=== PATIENT | female | born 1975 | race African-American/Black ===

== ENCOUNTER → 2016-12-08 | Outpatient (REF) | payer BC, OTHER ==
[~2016-12-08] MED LIST: ACET50TA PO; IBUP200C10 PO; IBUP80TA PO; PERC5TAB12 PO
[2016-12-08 20:46] LABS: FREE T4 1.18 NG/DL (0.76-1.46); HCG, SERUM QUANTITATIVE < 1.0 MIU/ML
[2016-12-08 21:30] LABS: BASO % 1.1 % (0.0-1.0); EOS % 0.5 % (0.0-3.0); LARGE UNSTAINED CELL # 0.1 K/mm3 (0.0-0.4); LARGE UNSTAINED CELL % 2.2 % (0.0-4.0); LYMPH # 1.5 K/mm3 (1.5-4.5); LYMPH % 28.1 % (24.0-44.0); MEAN CORPUSCULAR HGB CONC 26.2 g/dl (32.0-36.5); MEAN CORPUSCULAR VOLUME 64.9 fl (80.0-96.0); MONO # 0.4 K/mm3 (0.0-0.8); MONO % 8.4 % (0.0-5.0); NEUTROPHILS # 2.9 K/mm3 (1.8-7.7); NEUTROPHILS % 59.8 % (36.0-66.0); PLATELET COUNT, AUTOMATED 381 k/mm3 (150-450); RED CELL DISTRIBUTION WIDTH 17.9 % (11.5-14.5); WHITE BLOOD COUNT 4.9 K/mm3 (4.0-10.0)
[2016-12-08 21:32] LABS: ADD MORPHOLOGY? YES
[2016-12-08 22:30] LABS: HYPOCHROMASIA 3+; MICROCYTOSIS 4+
[2016-12-08 22:31] LABS: ANISOCYTOSIS 3+; POLYCHROMASIA 1+; TARGET CELLS 1+
== END ==
LOC: M LAB REF 18:40
PROVIDERS: ATTEND Advanced Practice Midwife
DX: N92.0 Excessive and frequent menstruation with regular cycle (principal)

== ENCOUNTER → 2016-12-16 | Outpatient (REF) | payer BC, OTHER ==
[2016-12-16 19:31] LABS: PERCENT SATURATION 2.9 % (13.2-37.4)
[2016-12-16 19:45] LABS: FOLATE 12.6 NG/ML (>5.4)
[2016-12-20 00:08] LABS: HEMOGLOBIN A 98.7 % (94.0-98.0)
== END ==
LOC: M LAB REF 17:02
PROVIDERS: ATTEND Advanced Practice Midwife
DX: D64.9 Anemia, unspecified (principal)

== ENCOUNTER 2017-02-13 08:39 | Day surgery (SDC) | payer OTHER ==
[~2017-02-13] VITALS: Ht 162.6 cm; Wt 81.6 kg
[2017-02-13] VITALS (8 sets, daily range): BP systolic 120–140; BP diastolic 75–87
[~2017-02-13 08:39] MED LIST changes: -IBUP200C10 PO; -PERC5TAB12 PO
[2017-02-13] MEDS ORDERED: ceFAZolin 2 GM/D5W 50 ML IV BAG (J0690) As Ordered ONE (08:53)
[2017-02-13] MEDS ORDERED: LR 1,000 ML IV ONE (09:00)
[2017-02-13] MEDS ORDERED: PERC5TAB12 PO (09:35)
[2017-02-13 09:39] LABS: MEAN CORPUSCULAR HEMOGLOBIN 17.2 pg (27.0-33.0); MEAN CORPUSCULAR VOLUME 63.3 fl (80.0-96.0); WHITE BLOOD COUNT 5.5 K/mm3 (4.0-10.0)
[2017-02-13 09:40] LABS: MEAN CORPUSCULAR HGB CONC 27.1 g/dl (32.0-36.5)
[2017-02-13 09:48] LABS: CONTROL LINE HCG INT CTR LINE PRESENT
[2017-02-13 09:52] LABS: ANION GAP 8 MEQ/L (8-16); BLOOD UREA NITROGEN 17 MG/DL (7-18); CALCIUM LEVEL 8.3 MG/DL (8.5-10.1); CARBON DIOXIDE LEVEL 24 MEQ/L (21-32); CHLORIDE LEVEL 109 MEQ/L (98-107); CREATININE FOR GFR 0.64 MG/DL (0.55-1.02); GLOMERULAR FILTRATION RATE > 60.0 (>60); GLUCOSE, FASTING 88 MG/DL (70-105); SODIUM LEVEL 141 MEQ/L (136-145)
[2017-02-13] MEDS ORDERED: ACETAMINOPHEN 650 MG SUPP As Ordered ONE (09:57)
[2017-02-13] MEDS ORDERED: VASOPRESSIN INJ 20 UNITS/ML VIAL As Ordered ONE (09:57)
[2017-02-13] MEDS ORDERED: NEOSTIGMINE 10 MG/10 ML VIAL (J2710) As Ordered ONE (10:47)
[2017-02-13] MEDS ORDERED: PROPOFOL 200 MG/20 ML VIAL As Ordered ONE (10:47)
[2017-02-13] MEDS ORDERED: GLYCOPYRROLATE INJ 0.2 MG/ML 2 ML VIAL As Ordered ONE (10:47)
[2017-02-13] MEDS ORDERED: MIDAZOLAM INJ 2 MG/2 ML VIAL (J2250) As Ordered ONE (10:47)
[2017-02-13] MEDS ORDERED: LIDOCAINE 2% INJ 100 MG/5 ML SDV (FOR ANES.) As Ordered ONE (10:47)
[2017-02-13] MEDS ORDERED: fentaNYL 100 MCG/2 ML INJECTION (J3010) As Ordered ONE ×2 (10:47→11:58)
[2017-02-13] MEDS ORDERED: ONDANSETRON 4MG/2ML VIAL (J2405) As Ordered ONE (10:48)
[2017-02-13] MEDS ORDERED: dexameTHASONE 4 MG/ML 1ML VIAL (J1100) As Ordered ONE (10:48)
[2017-02-13] MEDS ORDERED: KETOROLAC 60 MG/2 ML VIAL (J1885) As Ordered ONE (10:48)
[2017-02-13 11:41] LABS: MEAN CORPUSCULAR HEMOGLOBIN 16.6 pg (27.0-33.0); MEAN CORPUSCULAR HGB CONC 26.2 g/dl (32.0-36.5); MEAN CORPUSCULAR VOLUME 63.5 fl (80.0-96.0); RED CELL DISTRIBUTION WIDTH 17.2 % (11.5-14.5); WHITE BLOOD COUNT 3.7 K/mm3 (4.0-10.0)
[2017-02-13] MEDS ORDERED: IBUPROFEN 400 MG TAB As Ordered ONE (11:58)
[2017-02-13] MEDS: fentaNYL 100 MCG/2 ML INJECTION (J3010) IV PRN ×4 (12:00→12:20)
[2017-02-13] MEDS ORDERED: ONDANSETRON 4MG/2ML VIAL (J2405) IV PRN (12:15)
[2017-02-13] MEDS ORDERED: LR 1,000 ML IV SCH (12:15)
[2017-02-13] MEDS: IBUPROFEN 800 MG TAB PO SCH ×3 (12:15→23:22)
--- NOTE | 2017-02-13 12:22 | RO ---
DATE OF PROCEDURE: 02/13/2017 PREOPERATIVE DIAGNOSES: 1. Excessive uterine bleeding. 2. Symptomatic anemia. 3. Fibroid uterus. POSTOPERATIVE DIAGNOSES: 1. Excessive uterine bleeding. 2. Symptomatic anemia. 3. Fibroid uterus. PROCEDURE: 1. Total vaginal hysterectomy. 2. Bilateral salpingectomies SURGEON: Da Beach DO CORRESPONDENCE RENEW CLERK: ANESTHESIA: General. Carole is a 41-year-old female with extensive history of abnormal uterine bleeding, symptomatic anemia and fibroid uterus. After counseling in the office a decision was made for total vaginal hysterectomy, possible bilateral salpingectomies COMPLICATIONS: None. ESTIMATED BLOOD LOSS: 500 mL. FINDING: An enlarged uterus with normal appearing ovaries. SPECIMEN SENT TO THE LAB: Uterus, cervix and bilateral fallopian tube. DESCRIPTION OF PROCEDURE: After obtaining informed consent, patient was taken to the operating room where general anesthetic was found to be adequate. She was then draped and prepped in usual sterile fashion in the dorsal lithotomy position. At this point, a Ch catheter was placed in the bladder for drainage. We then placed a weighted speculum in the posterior fornix of the vagina. Using a Jaquez retractor, the anterior and posterior lips of the cervix were then grasped with two [facility] clamp. The cervix were then infiltrated with dilute Pitressin in a circumferential manner. Using the Bovie, a circumferential incision was made over the cervix. The anterior and posterior cul-de-sac were then entered. A Oma clamp was placed at the level of the uterosacral ligament. This was clamped, cut and suture ligated using #0 Vicryl sutures. These two sutures were left in place for closure of the vaginal cuff. We then did serial bites to include the uterine artery, the utero-ovarian ligament. These were clamped, cut and suture ligated using #0 Vicryl sutures. The opposite side was done in similar fashion. At this point, the uterus and cervix was removed. The fallopian tube was identified. This was grasped with a Jamin clamp and a Oma clamp was placed over that pedicle and both fallopian tubes were removed in that fashion. After removal of the fallopian tube and the uterus and cervix, we then turned our attention to the uterosacral ligament where they both were imbricated in the posterior cul-de-sac, thereby obliterating the posterior cul-de-sac. At this point, the peritoneum was identified and the peritoneum was closed in a pursestring fashion using #2-0 Vicryl sutures and the vaginal cuff closed using the preplaced sutures at the level of the uterosacral ligament in two separate segment. Two pieces of Surgicel was placed in the vaginal cuff for good hemostasis. Excellent hemostasis noted. All instruments removed. Patient was then transferred to recovery room in stable condition.
[2017-02-13] MEDS ORDERED: MORPHINE 2 MG/ML 1ML SYRINGE As Ordered ONE (12:51)
[2017-02-13] MEDS: MORPHINE 2 MG/ML 1ML SYRINGE IV PRN ×2 (12:59→13:22)
[2017-02-13] MEDS ORDERED: PERCOCET 5MG/325MG TAB PO PRN (13:00)
[2017-02-13] MEDS: LR 1,000 ML IV SCH ×2 (14:49→20:30)
[2017-02-13] MEDS: PERCOCET 5MG/325MG TAB PO PRN ×2 (14:49→20:55)
[2017-02-13] MEDS: SIMETHICONE 80 MG CHEW TAB PO SCH ×3 (14:55→23:22)
[2017-02-14] VITALS: BP 128/79
[2017-02-14] MEDS: PERCOCET 5MG/325MG TAB PO PRN (02:45)
[2017-02-14] MEDS: LR 1,000 ML IV SCH ×2 (04:23→05:55)
[2017-02-14] MEDS: SIMETHICONE 80 MG CHEW TAB PO SCH (05:46)
[2017-02-14] MEDS: IBUPROFEN 800 MG TAB PO SCH (05:46)
[2017-02-14 06:49] LABS: MEAN CORPUSCULAR HEMOGLOBIN 19.5 pg (27.0-33.0); MEAN CORPUSCULAR HGB CONC 29.8 g/dl (32.0-36.5); MEAN CORPUSCULAR VOLUME 65.5 fl (80.0-96.0); RED CELL DISTRIBUTION WIDTH 18.9 % (11.5-14.5); WHITE BLOOD COUNT 11.3 K/mm3 (4.0-10.0)
[2017-02-14 07:08] LABS: ANION GAP 6 MEQ/L (8-16); CALCIUM LEVEL 7.9 MG/DL (8.5-10.1); CARBON DIOXIDE LEVEL 27 MEQ/L (21-32); CHLORIDE LEVEL 108 MEQ/L (98-107); CREATININE FOR GFR 0.65 MG/DL (0.55-1.02); GLOMERULAR FILTRATION RATE > 60.0 (>60); GLUCOSE, FASTING 99 MG/DL (70-105); POTASSIUM SERUM 3.9 MEQ/L (3.5-5.1); SODIUM LEVEL 141 MEQ/L (136-145)
[2017-02-14 07:27] LABS: BLOOD UREA NITROGEN 6 MG/DL (7-18)
[2017-02-14 08:00] VITALS: BP 116/80
[2017-02-14] MEDS ORDERED: IBUP200C10 PO (09:12)
== END 2017-02-14 10:50 | disposition home or self-care (01) ==
LOC: M SDC 08:39 → M PED 13:40 → M SDC 02-14 10:50
PROVIDERS: ATTEND Obstetrics & Gynecology
DX: N93.9 Abnormal uterine and vaginal bleeding, unspecified (principal); D64.9 Anemia, unspecified; D25.9 Leiomyoma of uterus, unspecified; R29.898 Other symptoms and signs involving the musculoskeletal system; F41.9 Anxiety disorder, unspecified; Z87.11 Personal history of peptic ulcer disease; Z86.79 Personal history of other diseases of the circulatory system
CPT/HCPCS: 36415; 58262; 80048; 84703; 85027; 86850; 86900; 86901; 86920; 88309; 96374; 96375; J0690; J1100; J1885; J2250; J2405; J2710; J3010; P9016

== ENCOUNTER → 2017-04-09 | Outpatient (CLI) | payer OTHER ==
[~2017-04-09] MED LIST changes: +IBUP200C10 PO; +PERC5TAB12 PO
[2017-04-09 10:14] LABS: MEAN CORPUSCULAR HEMOGLOBIN 19.3 pg (27.0-33.0); MEAN CORPUSCULAR HGB CONC 28.5 g/dl (32.0-36.5); MEAN CORPUSCULAR VOLUME 67.6 fl (80.0-96.0); PLATELET COUNT, AUTOMATED 331 10^3/uL (150-450); RED CELL DISTRIBUTION WIDTH 21.1 % (11.5-14.5); WHITE BLOOD COUNT 7.5 10^3/uL (4.0-10.0)
[2017-04-09 10:39] LABS: ALBUMIN 3.6 GM/DL (3.2-5.2); ALKALINE PHOSPHATASE 88 U/L (45-117); ALT/SGPT 26 U/L (12-78); ANION GAP 6 MEQ/L (8-16); AST/SGOT 14 U/L (7-37); BILIRUBIN,TOTAL 0.4 MG/DL (0.2-1.0); BLOOD UREA NITROGEN 9 MG/DL (7-18); CALCIUM LEVEL 8.7 MG/DL (8.5-10.1); CARBON DIOXIDE LEVEL 27 MEQ/L (21-32); CHLORIDE LEVEL 105 MEQ/L (98-107); CHOLESTEROL LEVEL 201 MG/DL (<200); CREATININE FOR GFR 0.72 MG/DL (0.55-1.02); GLOMERULAR FILTRATION RATE > 60.0 (>60); GLUCOSE, FASTING 124 MG/DL (70-105); PERCENT SATURATION 4.4 % (13.2-45.0); POTASSIUM SERUM 3.9 MEQ/L (3.5-5.1); SODIUM LEVEL 138 MEQ/L (136-145); THYROXINE (T4) 8.9 UG/DL (4.5-12.0); TOTAL IRON BINDING CAPACITY 454 UG/DL (250-450); TOTAL PROTEIN 7.6 GM/DL (6.4-8.2); TRIGLYCERIDES LEVEL 56 MG/DL (<150)
== END ==
LOC: M LAB 09:51
PROVIDERS: ATTEND Family Medicine
DX: D64.9 Anemia, unspecified (principal)

== ENCOUNTER → 2018-03-02 | Outpatient (REF) | payer OTHER | LOC: M SFHCLERA 13:53 | DX: J02.9 Acute pharyngitis, unspecified (principal) ==

== ENCOUNTER 2018-08-17 22:54 | Emergency (ER) | payer BC, OTHER ==
[~2018-08-17] VITALS: Ht 160 cm; Wt 79.5 kg
[~2018-08-17 22:54] MED LIST changes: -ACET50TA PO; -IBUP200C10 PO; +IBUP200C25 PO; +MAPA500T17 PO
[2018-08-18 02:10] LABS: BASO # 0.1 10^3/uL (0.0-0.2); BASO % 0.6 % (0.0-1.0); EOS % 0.1 % (0.0-3.0); HEMATOCRIT 39.8 % (36.0-47.0); HEMOGLOBIN 12.8 g/dl (12.0-15.5); LYMPH # 1.3 10^3/uL (1.5-4.5); LYMPH % 8.8 % (24.0-44.0); MEAN CORPUSCULAR HEMOGLOBIN 26.6 pg (27.0-33.0); MEAN CORPUSCULAR HGB CONC 32.2 g/dl (32.0-36.5); MEAN CORPUSCULAR VOLUME 82.7 fl (80.0-96.0); MONO # 1.1 10^3/uL (0.0-0.8); MONO % 7.9 % (0.0-5.0); NEUTROPHILS # 11.8 10^3/uL (1.8-7.7); NEUTROPHILS % 82.4 % (36.0-66.0); PLATELET COUNT, AUTOMATED 212 10^3/uL (150-450); RED BLOOD COUNT 4.81 10^6/uL (4.00-5.40); WHITE BLOOD COUNT 14.3 10^3/uL (4.0-10.0)
[2018-08-18 02:27] LABS: BLOOD UREA NITROGEN 13 MG/DL (7-18); CALCIUM LEVEL 8.4 MG/DL (8.5-10.1); CARBON DIOXIDE LEVEL 26 MEQ/L (21-32); CHLORIDE LEVEL 103 MEQ/L (98-107); CPK CREATINE PHOSPHOKINASE 201 U/L (26-192); CREATININE FOR GFR 0.98 MG/DL (0.55-1.30); GLOMERULAR FILTRATION RATE > 60.0 (>58); GLUCOSE, FASTING 183 MG/DL (70-100); MB/CK RELATIVE INDEX 2.89 (< OR =4); POTASSIUM SERUM 4.1 MEQ/L (3.5-5.1); SODIUM LEVEL 137 MEQ/L (136-145); TROPONIN I 2.29 NG/ML (< 0.10)
[2018-08-18 02:42] LABS: HCG, SERUM QUALITATIVE NEGATIVE (NEGATIVE)
[2018-08-18] MEDS ORDERED: ISOVUE-370 76% 125ML VIAL (Q9967 PER ML) As Ordered ONE (02:47)
[2018-08-18 02:59] LABS: INR 1.03; PROTHROMBIN TIME 13.6 SECONDS (12.1-14.4)
[2018-08-18] MEDS ORDERED: NS 1,000 ML IV ONE (03:15)
[2018-08-18] MEDS ORDERED: fentaNYL 100 MCG/2 ML INJECTION (J3010) As Ordered ONE (03:45)
[2018-08-18] MEDS ORDERED: CLOPIDOGREL 300 MG TAB (PLAVIX) PO STA (03:47)
[2018-08-18] MEDS ORDERED: HEPARIN DRIP 25,000 UNITS in APPROPRIATE DILUENT 1 EA IV SCH (03:56)
[2018-08-18] MEDS ORDERED: fentaNYL 100 MCG/2 ML INJECTION (J3010) IV ONE (04:00)
[2018-08-18] MEDS ORDERED: ASPIRIN 81 MG CHEW TABLET PO ONE (04:00)
[2018-08-18] MEDS ORDERED: HEPARIN SOD (PORCINE) 5000 UNITS/ML VIAL IV ONE (04:00)
--- NOTE | 2018-08-18 04:30 | REPVR ---
EXAM: CT Angiography Chest With Contrast EXAM DATE/TIME: 08/18/18 (2:48am) CLINICAL HISTORY: 43 year old female with chest pain, radiating through to her back TECHNIQUE: Imaging protocol: Axial computed tomographic angiography images of the chest with intravenous contrast using CT angiography protocol. Coronal and sagittal reformatted images were created and reviewed. 3D rendering: MIP reconstructed images were created and reviewed. Radiation optimization: All CT scans at this facility use at least one of these dose optimization techniques: automated exposure control; mA and/or kV adjustment per patient size (includes targeted exams where dose is matched to clinical indication); or iterative reconstruction. Contrast material: Iso Contrast volume: 75 ml Contrast route: ac COMPARISON: No relevant prior studies available FINDINGS: Pulmonary arteries: Normal. No pulmonary emboli. Aorta: Normal. No aortic aneurysm. No aortic dissection. Lungs: Normal. No consolidation nor masses. Pleural space: Normal. No pneumothorax. No pleural effusions. Heart: Normal. No cardiomegaly. No pericardial effusion. Lymph nodes: Unremarkable. No enlarged lymph nodes. Bones/joints: Unremarkable. No acute fracture. Soft tissues: Unremarkable. Upper abdomen: Indeterminate hypodense lesion (2.6 cm avg. size) laterally in the right hepatic lobe (axial image #154). Additional lesion in the inferior right hepatic lobe (2,1 x 3.1 cm size) (axial image #188). IMPRESSION: No acute findings. No filling defects suspicious for pulmonary emboli are seen. There is no CT evidence of aortic dissection nor leakage. No aortic aneurysm is appreciated. 2 indeterminate hypodense right hepatic lobe lesions --- possible hemangiomas; possible metastatic foci; cannot exclude other etiologies. Comparison with prior abdominal imaging studies is suggested, if and when available. Electronically signed by: Ruth Freeman On 08/18/2018 04:30:34 AM
[2018-08-18 04:44] VITALS: BP 88/67
--- NOTE | 2018-08-18 08:13 | ECGEPIP ---
Stationary ECG Study [facility] - ED Test Date: 2018-08-17 Pat Name: IZABELLA MORGAN Department: Room: - Gender: F Supervisor Nurse: af : 1975 Requested By: TERESSA Cunha Order Number: [id number] Reading MD: Jose Vasquez Measurements Intervals Warrior Rate: 55 P: 8 CO: 156 QRS: 49 QRSD: 94 T: -3 QT: 464 QTc: 445 Interpretive Statements SINUS BRADYCARDIA MODERATE ST DEPRESSION NO PRIORS FOR COMPARISON Electronically Signed On 08-18-2018 8:12:44 EDT by Jose Vasquez
--- NOTE | 2018-08-18 08:15 | REP ---
Oral chest x-ray: Single view. History: Chest pain. Findings: EKG monitoring electrodes overlie the chest. Lungs are well inflated and clear. Cardiomediastinal silhouette is unremarkable. Pleural angles are sharp. No bony abnormalities seen. Pulmonary vasculature is not increased. Impression: Negative for chest x-ray. Electronically Signed by Judson King MD 08/18/2018 08:07 A
== END 2018-08-18 04:48 | disposition short-term general hospital (02) ==
LOC: M ED 22:54
DX: I21.4 Non-ST elevation (NSTEMI) myocardial infarction (principal); R91.8 Other nonspecific abnormal finding of lung field; R00.1 Bradycardia, unspecified
CPT/HCPCS: 71045; 71275; 80048; 82550; 82553; 84484; 84703; 85025; 85610; 93005; 93041; 94760; 96361; 96374; 96375; 99285; Q9967

== ENCOUNTER 2018-11-19 15:27 | Outpatient (RCR) | payer BC ==
--- NOTE | 2018-10-27 16:11 | CARECAPL ---
Assessment Account #s: Initial Assessment General Diagnoses: STEMI Date of event: Aug 18, 2018 Physician: Ata Kc MD Allergies: Coded Allergies: No Known Allergies (Verified , 08/17/18) Date Entered Program: Oct 27, 2018 Risk strat for cardiac event: Low Exercise Assessment: Initial Assessment Exercise Prescription Plan educate and increase endurance through monitored exercise Modalities initiated: Treadmill ( will add speed 2.0 for 10 minutes), Nustep (will add Resistance of 1 for 8 minutes), Arm Aerometer (will add resistance of 1.0 for 6 minutes), Dumbells (will add 1lb weights 8-12 reps), Recumbent Bike (will add Resistance 1 for 6 minutes) Frequency: 2 Duration (Minutes) 30-60 minutes total exercise a day. 6-12 work intervals in minutes. prn rest intervals in minutes. Functional Capacity Goal Sustained Metabolic Equivalent of a task (MET) goal of 2.5-3.5 for 15-20 minutes. Intensity: 3-Moderate Progression (METS) Increase by: 0.5 METS every: 3-5 sessions Angina with ex: Yes Target Heart Rate rest + 35-40 per beta reanna therapy Weight (pounds): 1 Reps: 8-12 Medications Scheduled Aspirin (Aspirin EC), 1 TAB PO DAILY, (Reported) Atorvastatin Calcium (Atorvastatin Calcium), 1 TAB PO DAILY, (Reported) Escitalopram Oxalate (Lexapro), 20 MG PO DAILY, (Reported) Metoprolol Succinate (Metoprolol Succinate), 25 TAB PO DAILY, (Reported) Trazodone HCl (Trazodone HCl), 1 TAB PO QPM, (Reported) Target Goals Individual exercise Rx (1) BP 140/90 or 130/80 if DM or CKD (1) Aerobic active 30+min 5 days per week (1) Nutrition Date: Oct 27, 2018 Assessment: Initial Assessment Lipid- med/supplement atorvastatin Monitor Blood Sugar at home: No Weight Management Weight (lbs): 205.4 Height (inches): 64 Waist Circumference (Inches): 43 BMI: 35.18 Weight goal: 130 Special Diet: low salt, low-fat Alcohol: none Diet Access Tool: Rate your plate Score: 53 Referral to Diabetes education: No Referral to lipid clinic: No Referral to weight mangement p: Yes (possible weight management for healthy lifestyles) Target goal LDL-C<100 if triglycerides are >200 Non-HDL-C should be <130 (1) LDL-C<70 for high risk patients (4) HbA1c<7% (1) BMI<25 Waist cir<40in M/<35in F (1) Education Date: Oct 27, 2018 Assessment: Initial Assessment Learning Barriers: ready Knowledge Test Score: 5 Family Support: Yes Tobacco use: No Quit: never smoked Target Goals Complete cessation of tobacco use (1). Psychosocial Date: Oct 27, 2018 Assessment: Initial Assessment Psych Test (Initial/Discharge) Tool Used: CESD Score: 26 Intervention Physician Consult: Yes Psychotropic medication lexapro Target Goal Assess presence or absence of depression using a valid screening tool (1). Maximize coping skills (2). Positive support system (2). Patient/Program Goal Preventative Medication: Yes Aspirin, Yes Beta blockade, Yes Statin/OTR lipid Lowering Fall Risk Assess: No Provider Assessment Provider Assessment: Proceed with rehab Ariella Perez RN Oct 27, 2018 16:11
--- NOTE | 2018-11-15 15:47 | CARECAPL ---
Assessment Account #s: Re-Assessment I General Diagnoses: STEMI Date of event: Aug 18, 2018 Physician: Ata Kc MD Allergies: Coded Allergies: No Known Allergies (Verified , 08/17/18) Date Entered Program: Oct 27, 2018 Risk strat for cardiac event: Low Exercise Date: Nov 15, 2018 Assessment: Initial Assessment Exercise Prescription Plan TO EDUCATE AND BUILD ENDURANCE THROUGH MONITORED EXERCISE Modalities initiated: Nustep (METS=2.5/RPE=2), Arm Aerometer (METS=2.1/RPE=2), Dumbells (2#/RPE=2), Recumbent Bike (METS=2.6/RPE=3) Frequency: 3 Duration (Minutes) 30-60 minutes total exercise a day. 10-12 work intervals in minutes. 5 MIN rest intervals in minutes. NEEDED Functional Capacity Goal Sustained Metabolic Equivalent of a task (MET) goal of 2.5-3.5 for 15-20 minutes. Intensity: 3-Moderate Progression (METS) Increase by: 0.5 METS every: 5 sessions TOLERATED Angina with ex: No Target Heart Rate REST +35-40 Resistance Training: Yes Weight (pounds): 2 Reps: 8-12 Hypertension: Yes Hypertension controlled with: Medication Resting 108/72 Peak Exercise BP 148/80 Medications Scheduled Aspirin (Aspirin EC), 1 TAB PO DAILY, (Reported) Atorvastatin Calcium (Atorvastatin Calcium), 1 TAB PO DAILY, (Reported) Escitalopram Oxalate (Lexapro), 20 MG PO DAILY, (Reported) Metoprolol Succinate (Metoprolol Succinate), 25 TAB PO DAILY, (Reported) Trazodone HCl (Trazodone HCl), 1 TAB PO QPM, (Reported) Current BP 104/62 Med Change: No Intervention Resistance Training: Yes Education: Self pulse, Ex safety, S/S to report, Low NA diet, BP medication, RPE Scale, Equipment orientation, warm up/cool down, Understand BP, Physical Active Target Goals Individual exercise Rx (1) BP 140/90 or 130/80 if DM or CKD (1) Aerobic active 30+min 5 days per week (1) Nutrition Date: Nov 15, 2018 Assessment: Re-Assessment I Lipid- med/supplement ATORVASTATIN Med Change: No Diabetes Diabetes: No Monitor Blood Sugar at home: No Medication Change: No Weight Management Weight (lbs): 205.4 Special Diet: low salt, low-fat Current Weight (pounds): 205.4 Intervention Lock Setter Consult: No Nurse/patient discussion: Yes Dietary Goals TO MAKE HEART HEALTHY CHOICES Diet Class: Yes (WILL MEET WITH RAILWAY SIGNAL TECHNICIAN DURING PROGRAM) Referral to Diabetes education: No Referral to lipid clinic: No Referral to weight mangement p: Yes (WILL DISCUSS WEIGHT MANAGEMENT WITH HEALTHY LIFESTYLES WITH PATIENT) Education Eating Healthy Target goal LDL-C<100 if triglycerides are >200 Non-HDL-C should be <130 (1) LDL-C<70 for high risk patients (4) HbA1c<7% (1) BMI<25 Waist cir<40in M/<35in F (1) Education Date: Nov 15, 2018 Assessment: Re-Assessment I Learning Barriers: ready Family Support: Yes Tobacco use: No Tobacco Use Smokeless tobacco: No Intervention Referral to smoking cessation: No Individual education and couns: No Tobacco Adjunct: No Education class schedule given: No Attended education classes: No Education: CAD, Risk factors, med compliance, cardiac A&P, Angina S/S, Sexuality Target Goals Complete cessation of tobacco use (1). Psychosocial Date: Nov 15, 2018 Assessment: Re-Assessment I Intervention Physician Consult: No Physician Referral: No Med Change: No Stress Management Class: No Uses Stress Management Skills: Yes Education Education: Coping Techniques, S/S depression, Relaxation Techniques Target Goal Assess presence or absence of depression using a valid screening tool (1). Maximize coping skills (2). Positive support system (2). Patient/Program Goal Preventative Medication: Yes Aspirin, Yes Beta blockade, Yes Statin/OTR lipid Lowering Fall Risk Assess: Yes (NOT A FALL RISK) Provider Assessment Provider Assessment: Proceed with rehab Luis Armando Balderas RN Nov 15, 2018 15:47
[~2018-11-19 15:27] MED LIST changes: +ASPI81TA26 PO; +ATOR40TA75 PO; +LEXA1TAB2 PO; +METO1TAB33 PO; +TRAZ-186 PO
== END 2018-11-21 ==
LOC: M CR 15:27
PROVIDERS: ATTEND Internal Medicine Cardiovascular Disease
DX: I21.4 Non-ST elevation (NSTEMI) myocardial infarction (principal)

== ENCOUNTER 2018-12-17 09:49 | Outpatient (RCR) | payer BC ==
--- NOTE | 2018-12-06 15:19 | CARECAPL ---
Assessment Account #s: Re-Assessment II General Diagnoses: STEMI Date of event: Aug 18, 2018 Physician: Ata Kc MD Allergies: Coded Allergies: No Known Allergies (Verified , 08/17/18) Date Entered Program: Oct 27, 2018 Risk strat for cardiac event: Low Exercise Date: Dec 06, 2018 Assessment: Re-Assessment II Exercise Prescription Plan TO EDUCATE AND BUILD ENDURANCE THROUGH MONITORED EXERCISE Modalities initiated: Treadmill (METS=2.53/RPE=2), Nustep (METS=4.2/RPE=3), Arm Aerometer (METS=2.4/RPE=4), Dumbells (3#/RPE=4), Recumbent Bike (METS=3.2/RPE=4) Frequency: 3 Duration (Minutes) 30-60 minutes total exercise a day. 10-15 work intervals in minutes. 5 MIN NEEDED rest intervals in minutes. Functional Capacity Goal Sustained Metabolic Equivalent of a task (MET) goal of 3.5-4.5 for 15-20 minutes. Intensity: 3-Moderate Progression (METS) Increase by: 0.5 METS every: 5 sessions TOLERATED Angina with ex: No Target Heart Rate +35-40 BASED ON BETA ZECHARIAH THERAPY Resistance Training: Yes Weight (pounds): 3 Reps: 12-15 Hypertension: Yes Hypertension controlled with: Medication Resting 112/80 Peak Exercise BP 140/80 Medications Scheduled Aspirin (Aspirin EC), 1 TAB PO DAILY, (Reported) Atorvastatin Calcium (Atorvastatin Calcium), 1 TAB PO DAILY, (Reported) Escitalopram Oxalate (Lexapro), 20 MG PO DAILY, (Reported) Metoprolol Succinate (Metoprolol Succinate), 25 TAB PO DAILY, (Reported) Trazodone HCl (Trazodone HCl), 1 TAB PO QPM, (Reported) Current BP 120/78 Med Change: No Intervention Resistance Training: Yes Education: Self pulse, Ex safety (REVIEWED TIPS TO EXERCISE SAFELY SUCH STRETCHING, STARTING OUT SLOWLY), S/S to report (DISCUSSED IMPORTANCE OF REPORTING, CHEST PAIN/HEAVINESS, SOB), Low NA diet (DISCUSSED IMPORTANCE OF LOW SALT DIET), BP medication (REVIEWED METOPROLOL), RPE Scale (EDUCATED ON 1-5 SCALE FOR EFFORT), Equipment orientation (ORIENTED TO EACH PIECE OF EQUIPMENT USED), warm up/cool down (REVIEWED IMPORTANCE OF WARM UP/COOL DOWN, STRETCHING, SLOWLY WALKING), Understand BP, Physical Active (EDUCATED ON IMPORTANCE OF CONTINUED EXERCISE ONCE FINISHED WITH CARDIAC REHAB PROGRAM) Target Goals Individual exercise Rx (1) BP 140/90 or 130/80 if DM or CKD (1) Aerobic active 30+min 5 days per week (1) Nutrition Date: Dec 06, 2018 Assessment: Re-Assessment II Lipid- med/supplement ATORVASTATIN Med Change: No Diabetes Diabetes: No Monitor Blood Sugar at home: No Medication Change: No Blood sugar in range: No Weight Management Weight (lbs): 205 Special Diet: low salt, low-fat (DISCUSSED LOW SALT AND FAT DIET, WILL SEE CORE DROPPER WHILE IN PROGRAM) Alcohol: special Current Weight (pounds): 205 Intervention Cloth Printer Consult: No Nurse/patient discussion: Yes Dietary Goals TO MAKE HEART HEALTHY CHOICES AND REDUCE PORTIONS Diet Class: Yes (WILL MEET WITH CORE DROPPER DURING PROGRAM) Referral to Diabetes education: No Referral to lipid clinic: No Referral to weight mangement p: No Education Eating Healthy Target goal LDL-C<100 if triglycerides are >200 Non-HDL-C should be <130 (1) LDL-C<70 for high risk patients (4) HbA1c<7% (1) BMI<25 Waist cir<40in M/<35in F (1) Education Date: Dec 06, 2018 Assessment: Re-Assessment II Learning Barriers: ready Family Support: Yes Tobacco use: No Tobacco Use Smokeless tobacco: No Intervention Referral to smoking cessation: No Individual education and couns: No Tobacco Adjunct: No Education class schedule given: No Attended education classes: No Education: CAD, Risk factors, med compliance, cardiac A&P, Angina S/S, Sex uality Target Goals Complete cessation of tobacco use (1). Psychosocial Date: Dec 06, 2018 Assessment: Re-Assessment II Intervention Physician Consult: No Physician Referral: No Med Change: No Stress Management Class: No Uses Stress Management Skills: Yes Education Education: Coping Techniques, S/S depression, Relaxation Techniques Target Goal Assess presence or absence of depression using a valid screening tool (1). Maximize coping skills (2). Positive support system (2). Patient/Program Goal Preventative Medication: Yes Aspirin, Yes Beta blockade, Yes Statin/OTR lipid Lowering Fall Risk Assess: Yes (NOT A FALL RISK) Provider Assessment Session Number: 5 Provider Assessment: Proceed with rehab Luis Armando Balderas RN Dec 06, 2018 15:19
== END 2018-12-22 ==
LOC: M CR 09:49
PROVIDERS: ATTEND Internal Medicine Cardiovascular Disease
DX: I21.4 Non-ST elevation (NSTEMI) myocardial infarction (principal)

== ENCOUNTER → 2019-11-22 | Outpatient (REF) | payer BC ==
[2019-11-22 23:49] LABS: CHLAMYDIA DNA AMPLIFICATION NEGATIVE (NEGATIVE); GC DNA AMPLIFICATION NEGATIVE (NEGATIVE)
== END ==
LOC: M LAB REF 21:54
PROVIDERS: ATTEND Physician Assistant Medical
DX: Z20.2 Contact with and (suspected) exposure to infections with a predominantly sexual mode of transmission (principal)

== ENCOUNTER 2020-06-21 11:59 | Emergency (ER) | payer BC ==
[~2020-06-21] VITALS: Ht 165.1 cm; Wt 95.6 kg
--- OUTSIDE RECORDS SUMMARY | 2020-06-21 12:07 | CCD ---
Author Author [facility] Organization [facility] Address Unknown Phone Unavailable Support Name Relationship Address Phone THE [employer] Next Of Kin [address] [place] [phone] RUKHSANA SHELTONRANCE Next Of Kin [place] [phone] TAYA MORGAN Next Of Kin [address] [place] [id number] [employer] Next Of Kin [facility] [address] [place] [phone] RUKHSANA SHELTONRANCA Next Of Kin [address] [place] [address] Intio Next Of Kin [address] [place] [place] [phone] LMR Next Of [place] [phone] MAVIS ESPINOZARITA Next Of Kin [address] [facility] [place] [phone] TAYA MORGAN ECON Unknown Unavailable Re-disclosure Warning The records that you are about to access may contain information from federally-assisted alcohol or drug abuse programs. If such information is present, then the following federally mandated warning applies: This information has been disclosed to you from records protected by federal confidentiality rules (42 CFR part 2). The federal rules prohibit you from making any further disclosure of this information unless further disclosure is expressly permitted by the written consent of the person to whom it pertains or as otherwise permitted by 42 CFR part 2. A general authorization for the release of medical or other information is NOT sufficient for this purpose. The Federal rules restrict any use of the information to criminally investigate or prosecute any alcohol or drug abuse patient.The records that you are about to access may contain highly sensitive health information, the redisclosure of which is protected by Article 27-F of the [facility] Public Health law. If you continue you may have access to information: Regarding HIV / AIDS; Provided by facilities licensed or operated by the [facility] Office of Mental Health; or Provided by the [facility] Office for People With Developmental Disabilities. If such information is present, then the following [facility] mandated warning applies: This information has been disclosed to you from confidential records which are protected by state law. State law prohibits you from making any further disclosure of this information without the specific written consent of the person to whom it pertains, or as otherwise permitted by law. Any unauthorized further disclosure in violation of state law may result in a fine or fci sentence or both. A general authorization for the release of medical or other information is NOT sufficient authorization for further disc losure. Medications Medication Brand Name Start Date Product Form Dose Route Admi nistrative Instructions Pharmacy Instructions Status Indications Reaction Description Data Source(s) 25 mg 08/20/2018 12:00:00 AM EDT tablet extended release 24 hr 30 TAKE ONE TABLET BY MOUTH EVERY DAY TAKE ONE TABLET BY MOUTH EVERY DAY SOLD: 07/10/2019 [facility] 81 mg 08/19/2018 12:00:00 AM EDT tablet,chewable 30 CHEW ONE TABLET BY MOUTH EVERY DAY CHEW ONE TABLET BY MOUTH EVERY DAY SOLD: 07/10/2019 [facility] 40 mg 08/19/2018 12:00:00 AM EDT tablet 30 TAKE ONE TABLET BY MOUTH EVERY EVENING TAKE ONE TABLET BY MOUTH EVERY EVENING SOLD: 07/10/2019 [facility] Insurance Providers Payer name Policy type / Coverage type Policy ID Covered alliance party ID Covered alliance party's relationship to resendiz Policy Resendiz Plan Information BCBS [facility] 430/934 [id number] SP [id number] BCBS [facility] 430/4 [id number] SP [id number] LOBITOUS BCBS [id number] Ynes ZLolaF [id number] LOBITOUS BCBS PI PI BCBS OF [facility] 430/934 [id number] SP [id number] [facility] [id number] SP [id number] ANSI-Commercial [id number] ANSI-Commercial [id number] [facility] [id number] SP [id number] [facility] [id number] SP [id number] AETNA [facility] [id number] SP [id number] [facility] BLUE [id number] SP [id number] AETNA-PHYSICIAN [id number] 01 00 [id number] AETNA-O/P [id number] 01 [id number] BLUE [employer]OSS [employer] [id number] SP [id number] EXCELLUS BCBS P [id number] S [id number]
[2020-06-21] MEDS ORDERED: NS 1,000 ML IV ONE (13:00)
--- OUTSIDE RECORDS SUMMARY | 2020-06-21 13:11 | CCD ---
Author Author [facility] Organization [facility] Address Unknown Phone Unavailable Support Name Relationship Address Phone THE [employer] Next [place] [address] [place] [address] RUKHSANA [place] [address] TAYA MORGAN Next Of Kin [address] [place] [address] [employer] Next Of Kin [address] [place] [address] RUKHSANA SHELTONRANCA Next Of Kin [address] [place] [address] Meddle Next [place] Kin [address] [place] [address] [place] [address] TAPERMAVISRITA Next Of Kin [address] [place] [phone] TAYA MORGAN ECON Unknown Unavailable Re-disclosure Warning [...] is protected by Article 27-F of the [facility] Public Health law. If you continue you may have access to information: Regarding HIV / AIDS; Provided by facilities licensed or operated by the [facility] Office of Mental Health; or Provided by the [facility] Office for People With Developmental Disabilities. If such information is present, then the following [facility] mandated warning applies: This information has [...] law may result in a fine or chcf sentence or both. A general authorization for [...] type / Coverage type Policy ID Covered democrat ID Covered democrat's relationship to resendiz Policy Resendiz Plan Information BCBS [facility] 430/934 [id number] SP [id number] BCBS [facility] 430/4 [id number] SP [id number] LOBITOUS BCBS [id number] Ynes [id number] LOBITOUS BCBS PI PI BCBS OF [facility] 430/[id number] [facility] [id number] SP [id number] ANSI-Commercial [id number] ANSI-Commercial [id number] [facility] [id number] SP [id number] [facility] [id number] SP [id number] AETNA [facility] [id number] SP [id number] [facility] BLUE [id number] SP [id number] AETNA-PHYSICIAN [id number] 01 00 [id number] AETNA-O/P [id number] 01 [id number] BLUE CROSS [employer] [id number] SP [id number] EXCELLUS BCBS P [id number]
[2020-06-21] MEDS ORDERED: ISOVUE-370 76% 100ML VIAL As Ordered ONE (13:29)
[2020-06-21 13:39] LABS: BASO % 0.6 % (0.0-1.0); EOS % 0.2 % (0.0-3.0); HEMATOCRIT 41.3 % (36.0-47.0); HEMOGLOBIN 13.4 g/dl (12.0-15.5); LYMPH # 1.4 10^3/uL (1.5-5.0); LYMPH % 28.3 % (24.0-44.0); MEAN CORPUSCULAR HEMOGLOBIN 27.7 pg (27.0-33.0); MEAN CORPUSCULAR HGB CONC 32.4 g/dl (32.0-36.5); MEAN CORPUSCULAR VOLUME 85.5 fl (80.0-96.0); MONO # 0.5 10^3/uL (0.0-0.8); MONO % 10.5 % (0.0-5.0); NEUTROPHILS % 60.2 % (36.0-66.0); PLATELET COUNT, AUTOMATED 257 10^3/uL (150-450); RED BLOOD COUNT 4.83 10^6/uL (4.00-5.40); WHITE BLOOD COUNT 5.1 10^3/uL (4.0-10.0)
[2020-06-21 13:52] LABS: INR 0.99; PARTIAL THROMBOPLASTIN TIME 26.4 SECONDS (24.2-38.5); PROTHROMBIN TIME 13.3 SECONDS (12.5-14.3)
[2020-06-21 14:02] LABS: ALBUMIN 3.7 GM/DL (3.2-5.2); BILIRUBIN,DIRECT 0.1 MG/DL (0.0-0.2); BILIRUBIN,TOTAL 0.4 MG/DL (0.2-1.0); TOTAL PROTEIN 7.7 GM/DL (6.4-8.2)
--- NOTE | 2020-06-21 14:09 | REP ---
INDICATION: lower abd pain/rectal bleeding. COMPARISON: Comparison is made with imaging from chest CT study done with IV contrast August 18, 2018.. TECHNIQUE: Helical scanning was acquired and 4 mm axial images are re-formatted. Coronal and sagittal MPR images were generated and reviewed. The contrast enhancement dose is 100 mL of intravenous Isovue 370. FINDINGS: Preliminary digital customer account specialist radiographs demonstrate a normal bowel gas pattern. The lung bases are clear on axial CT images. There is no evidence of pleural effusion or upper abdominal ascites. The liver and spleen are normal in size. No focal splenic lesion is seen. There is a tiny accessory splenule at the inferior margin of the spleen. There are 4 separately identifiable low-density liver lesions each of which displays peripheral discontinuous contrast enhancement suggesting that these are benign hemangiomas. They are visible on the prior CT study and appear to be unchanged. These measure 3.4, 1.2, 4.3, and 2.3 cm in greatest diameter respectively. There is a tiny hepatic cyst in the left lobe as well which is also unchanged. No adrenal lesion is seen. No abnormality is noted in the pancreas. The gallbladder is small and contracted but otherwise unremarkable. The kidneys enhance symmetrically and are morphologically intact. There is pancolonic diverticulosis without CT evidence of diverticulitis. There is a 1 cm cyst in the left ovary consistent with a follicle. No ovarian mass or significant cyst is seen. The uterus is surgically absent. Urinary bladder is unremarkable. A normal appendix is seen in the right lower quadrant. IMPRESSION: 1. 4 low-density liver lesions most compatible with benign hemangiomas. MRI scanning without and with intravenous gadolinium would provide additional information. 2. Pancolonic diverticulosis without CT evidence of diverticulitis. 3. Post hysterectomy. Otherwise unremarkable. Normal appendix seen. <Electronically signed by Peyman King > 06/21/20 [id number]
[2020-06-21 15:07] VITALS: BP 122/87
== END 2020-06-21 15:11 | disposition home or self-care (01) ==
LOC: M ED 11:59
DX: K62.5 Hemorrhage of anus and rectum (principal); R10.30 Lower abdominal pain, unspecified; G43.909 Migraine, unspecified, not intractable, without status migrainosus; F41.9 Anxiety disorder, unspecified
CPT/HCPCS: 74177; 80047; 80076; 83690; 85025; 85610; 85730; 86850; 86900; 86901; 96360; 96361; 99284; Q9967

== ENCOUNTER → 2020-07-12 | Outpatient (CLI) | payer BC ==
[~2020-07-12] MED LIST changes: +PROHANCE 279.3MG/ML 15ML VIAL As Ordered ONE; +PROHANCE 279.3MG/ML 5ML VIAL As Ordered ONE
--- NOTE | 2020-07-12 18:38 | REP ---
INDICATION: LIVER LESIONS ABN IMAGING. COMPARISON: None. Comparison CT abdomen and pelvis is from [address] chest study 18 August 2018. The study showed low-density liver lesions. TECHNIQUE: Axial and coronal T1 and T2 weighted sequences include spin echo, fast spin echo, diffusion-weighted scans, gradient echo, in and out of phase, and dynamically acquired sequential post gadolinium enhanced images. Gadolinium enhancement dose is 20 mL of intravenous ProHance. FINDINGS: There are 4 T2 hyperintense liver lesions corresponding to the low-density lesion seen on recent CT study. These are T1 hypointense and each of them demonstrates initial peripheral discontinuous contrast enhancement with subsequent filling in on the dynamically acquired post contrast images. These 4 lesions are compatible with benign hemangiomas. They measure as follows, a small left lobe lesion measures 1.5 cm in diameter. Three lesions in the right lobe measures 4.1, 2.7, and 1.9 cm in greatest diameter respectively. There is also a 0.6 cm cyst in the left lobe. No other focal liver lesion is seen. No splenic lesion is seen. Normal adrenal gland is observed on the left. There is a 1.6 cm nodule in the right adrenal gland. This is actually smaller than it was on 18 August 2018 and is felt to be consistent with a atypical benign adenoma. No abnormality is noted in the pancreas. The kidneys enhance symmetrically and are morphologically intact. IMPRESSION: Multiple benign hemangiomas of the liver. Small atypical benign adenoma right adrenal gland. 1.6 cm. <Electronically signed by Peyman King > 07/12/20 [id number]
== END ==
LOC: M RAD 16:11
PROVIDERS: ATTEND Physician Assistant
DX: D13.4 Benign neoplasm of liver (principal); R93.2 Abnormal findings on diagnostic imaging of liver and biliary tract
CPT/HCPCS: 74183; A9576

== ENCOUNTER → 2021-03-02 | Outpatient (CLI) | payer BC ==
[~2021-03-02] MED LIST changes: -PROHANCE 279.3MG/ML 15ML VIAL As Ordered ONE; -PROHANCE 279.3MG/ML 5ML VIAL As Ordered ONE
== END ==
LOC: M LABSMTC 10:47
PROVIDERS: ATTEND Anesthesiology
DX: Z01.812 Encounter for preprocedural laboratory examination (principal); Z11.52 Encounter for screening for COVID-19

== ENCOUNTER 2021-03-07 07:24 | Day surgery (SDC) | payer BC ==
[~2021-03-07] VITALS: Ht 162.6 cm; Wt 96.1 kg
[~2021-03-07 07:24] MED LIST changes: +LIDOCAINE 2% 100MG/5ML SDV (FOR ANES.) As Ordered ONE; +NS 1,000 ML IV ONE; +propofoL 200 MG/20 ML VIAL As Ordered ONE
--- OUTSIDE RECORDS SUMMARY | 2021-03-07 07:27 | CCD | Continuity of Care Document ---
Author Author Steff CAMPOS M.D. Organization Unknown Address [address] [place] [address], [address] [place] [address] Phone [phone] Care Team Providers Care Manager Account Management Name Role Phone Deangelo No [facility] [phone] Problems Description No Information Available Social History Type Date Description Comments Sex Unknown ETOH Use 0-1/d-Wine Tobacco Use Start: Unknown Non Smoker Allergies, Adverse Reactions, Alerts Description No Known Drug Allergies Medications Active Medications SIG Qnty Indications Ordering Provide r Date Lubiprostone 24mcg Capsules Amitiza-1cap prn Unknown Dok 100mg Capsules 1cap prn Unknown Nature's Bounty Acidophilus Probiotic prn Unknown Excedrin Migraine [phone] Tab lets prn Unknown Immunizations Description No Information Available Vital Signs Date Vital Result Comment 01/10/2021 11:51am BP Systolic 112 mmHg BP Diastolic 60 mmHg Height 64 inches 5'4" Weight 200.00 lb BMI (Body Mass Index) 34.3 kg/m2 [place] Body Weight 120 lb Weight 90.720 kg BSA (Body Surface Area) 1.96 m2 Results Description No Information Available Procedures Description No Information Available Medical Devices Description No Information Available Encounters Description No Information Available Assessments Date Code Description Provider 01/10/2021 K62.5 Hemorrhage of anus and rectum Carmen Campos M.D. 01/10/2021 R19.4 Change in bowel habit Guanaco Campos M.D. Plan of Treatment 01/10/2021 - Guanaco Chandrala, M.D.* K62.5 Hemorrhage of anus and rectum * R19.4 Change in bowel habit * * New Orders:* Colonoscopy, Ordered: 01/10/21 * Comments:* Impression:-- Rectal bleeding -- multiple episodes, intermittently and occasional loose stools -- DDx - need to r/o Colon polyps vs hemorrhoids vs less likely Colon mass. -- Prior liver hemagiomas in imaging- - no further follow up.-- DIverticulosis of the colon in past imaging test. * Recommendations:* -- Educated patient on prior test results and all possible differential diagnoses. All questions answered. -- Will schedule for colonoscopy. The procedure, indications, risks (bleeding, perforation, infection, hypotension, respiratory depression, allergy, need for endotracheal intubation, surgery, colostomy, cardiac arrest, even ), benefits, limitations (e.g., missing a lesion), and all other alternatives (including no intervention) were explained to the patient who understood and agreed for the procedure. -- FOr diverticulosis, patiet is educated about the high fiebr diet. -- Return to GI clinic 2 weeks post procedures. -- Follow up with PMD for routine medical care and other age appropriate health maintenance.. Functional Status Description No Information Available Mental Status Description No Information Available Referrals Refer to Reason for Referral Status Appt Date Guanaco Campos M.D. DIVERTICULITIS / LIVER LESION Sched uled 01/10/2021 [facility] [address], [address] [place] [address] [phone]
--- OUTSIDE RECORDS SUMMARY | 2021-03-07 07:27 | CCD | Continuity of Care Document ---
Author Author Steff CAMPOS M.D. Organization Unknown Address [address] [place] [address], [address] [place] [address] Phone [phone] Care Team Providers Care Silverer Name Role Phone Deangelo No [facility] [phone] Problems Description No Information Available Social History Type Date Description Comments Sex Unknown ETOH Use 0-1/d-Wine Tobacco Use Start: Unknown Non Smoker Allergies, Adverse Reactions, Alerts Description No Known Drug Allergies Medications Active Medications SIG Qnty Indications Ordering Provide r Date Lubiprostone 24mcg Capsules Amitiza-1cap prn Unknown Dok 100mg Capsules 1cap prn Unknown Nature's Bounty Acidophilus Probiotic prn Unknown Excedrin Migraine [phone] Tab lets prn Unknown Immunizations Description No Information Available Vital Signs Date Vital Result Comment 01/10/2021 11:51am BP Systolic 112 mmHg BP Diastolic 60 mmHg Height 64 inches 5'4" Weight 200.00 lb BMI (Body Mass Index) 34.3 kg/m2 [place] Body Weight 120 lb Weight 90.720 kg [...] DIVERTICULITIS / LIVER LESION Sched uled 01/10/2021 [facility] [address], [address] [place] [address] [phone]
--- OUTSIDE RECORDS SUMMARY | 2021-03-07 07:27 | CCD | Continuity of Care Document ---
Author Author Steff CAMPOS M.D. Organization Unknown Address [address] [place] [address], [address] [place] [address] Phone [phone] Care Team Providers Care Travel Registered Nurse Pacu Name Role Phone Deangelo No [facility] [phone] Problems Description No Information Available Social History Type Date Description Comments Sex Unknown ETOH Use 0-1/d-Wine Tobacco Use Start: Unknown Non Smoker Allergies, Adverse Reactions, Alerts Description No Known Drug Allergies Medications Active Medications SIG Qnty Indications Ordering Provide r Date Lubiprostone 24mcg Capsules Amitiza-1cap prn Unknown Dok 100mg Capsules 1cap prn Unknown Nature's Bounty Acidophilus Probiotic prn Unknown Excedrin Migraine [phone] Tab lets prn Unknown Immunizations Description No Information Available Vital Signs Date Vital Result Comment 01/10/2021 11:51am BP Systolic 112 mmHg BP Diastolic 60 mmHg Height 64 inches 5'4" Weight 200.00 lb BMI (Body Mass Index) 34.3 kg/m2 [place] Body Weight 120 lb Weight 90.720 kg [...] DIVERTICULITIS / LIVER LESION Sched uled 01/10/2021 [facility] [address], [address] [place] [address] [phone]
--- OUTSIDE RECORDS SUMMARY | 2021-03-07 07:27 | CCD ---
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 [employer] Name Role Phone Amina Hart PA Unavailable Unavailable O'saundra, Amina Bright PA Unavailable Unavailable O'saundra, A Deangelo PA Unavailable Unavailable O'saundra, A Deangelo PA Unavailable Unavailable O'saundra, A Deangelo PA Unavailable Unavailable O'saundra, A Deangelo PA Unavailable Unavailable O'saundra, A Deangelo PA Unavailable Unavailable O'saundra, A Deangelo PA Unavailable Unavailable O'saunrda, A Deangelo PA Unavailable Unavailable O'saundra, A Deangelo PA Unavailable Unavailable O'saundra, A Deangelo PA Unavailable Unavailable O'saundra, A Deangelo PA Unavailable Unavailable O'saundra, A Deangelo PA Unavailable Unavailable O'saundra, A Deangelo PA Unavailable Unavailable O'saundra, A Deangelo PA Unavailable Unavailable O'saundra, A Deangelo PA Unavailable Unavailable O'saundra, A Deangelo PA Unavailable Unavailable O'saundra, A Deangelo PA Unavailable Unavailable O'saundra, A Deangelo PA Unavailable Unavailable O'saundra, A Deangelo PA Unavailable Unavailable O'saundra, A Deangelo PA Unavailable Unavailable O'saundra, A Deangelo PA Unavailable Unavailable O'saundra, A Deangelo PA Unavailable Unavailable O'saundra, A Deangelo PA Unavailable Unavailable O'saundra, A Deangelo PA Unavailable Unavailable O'saundra, A Deangelo PA Unavailable Unavailable O'saundra, A Deangelo PA Unavailable Unavailable O'saundra, A Deangelo PA Unavailable Unavailable O'saundra, A Deangelo PA Unavailable Unavailable O'saundra, A Deangelo PA Unavailable Unavailable O'saundra, A Deangelo PA Unavailable Unavailable O'saundra, A Deangelo PA Unavailable Unavailable O'saundra, A Deangelo PA Unavailable Unavailable Lola GRIGGS MD Unavailable Unavailable Lola GRIGGS MD Unavailable Unavailable Lola GRIGGS MD Unavailable Unavailable Lola GRIGGS MD Unavailable Unavailable Lola GRIGGS MD Unavailable Unavailable Lola GRIGGS MD Unavailable Unavailable Lola GRIGGS MD Unavailable Unavailable Lola GRIGGS MD Unavailable Unavailable Lola GRIGGS MD Unavailable Unavailable Lola GRIGGS MD Unavailable Unavailable Lola GRIGGS MD Unavailable Unavailable Lola GRIGGS MD Unavailable Unavailable Lola GRIGGS MD Unavailable Unavailable Lola GRIGGS MD Unavailable Unavailable Lola GRIGGS MD Unavailable Unavailable Lola GRIGGS MD Unavailable Unavailable Lola GRIGGS MD Unavailable Unavailable Lola GRIGGS MD Unavailable Unavailable Lola GRIGGS MD Unavailable Unavailable Lola GRIGGS MD Unavailable Unavailable Lola GRIGGS MD Unavailable Unavailable Lola GRIGGS MD Unavailable Unavailable Lola GRIGGS MD Unavailable Unavailable Lola GRIGGS MD Unavailable Unavailable Lola GRIGGS MD Unavailable Unavailable Lola GRIGGS MD Unavailable Unavailable Lola GRIGGS MD Unavailable Unavailable Lola GRIGGS MD Unavailable Unavailable Lola GRIGGS MD Unavailable Unavailable Lola GRIGGS MD Unavailable Unavailable Lola GRIGGS MD Unavailable Unavailable Lola GRIGGS MD Unavailable Unavailable Lola GRIGGS MD Unavailable Unavailable Re-disclosure Warning The records that you [...] is protected by Article 27-F of the [facility] Public Health law. If you continue you may have access to information: Regarding HIV / AIDS; Provided by facilities licensed or operated by the [facility] Office of Mental Health; or Provided by the [facility] Office for People With Developmental Disabilities. If such information is present, then the following [facility] mandated warning applies: This information has [...] law may result in a fine or halfway sentence or both. A general authorization for the release of medical or other information is NOT sufficient authorization for further disc losure. Family History Family Member Name Family Member Gender Family Member Status Date o f Status Description Data Source(s) Unknown Male Problem [facility] ([facility]) Encounters Encounter Providers Location Date Indications Data Source(s ) Outpatient Attender: USHA Urrutia/Terese/Freeman dobbins/Judy 01/10/2021 10:50:00 AM EDT [facility] ([facility], ) Outpatient Attender: Deangelo PAREKH [facility] 06/22/2020 12:30:00 PM EST [facility] ([facility]) Medications Medication Brand Name Start Date Product Form Dose Route Admi nistrative Instructions Pharmacy Instructions Status Indications Reaction Description Data Source(s) Citric Acid 75 MG/ML / Magnesium Oxide 2 1.9 MG/ML / picosulfate sodium 0.0625 MG/ML Oral Solution [Clenpiq] 10 mg-3.5 gram -12 gram/160 mL SOD PICOSULF/MAG OX/CITRIC AC 01/23/2021 12:00:00 AM EDT solution 320 F OLLOW PRE-PROCEDURE INSTRUCTIONS FOLLOW PRE-PROCEDURE INSTRUCTIONS SOLD: 01/24/2021 [facility] POLYETHYLENE GLYCOL 3350 105 MG/ML / Pot assium Chloride 0.72348 MEQ/ML / Sodium Bicarbonate 0.017 MEQ/ML / Sodium Chloride 0.0479 MEQ/ML Oral Solution [GaviLyte-N] Gavilyte-N With Flavor Pack 01/22/2021 12:00:00 AM EDT active [facility] ([facility], ) Bisacodyl 5 MG Delayed Release Oral Tablet [Dulcolax] Dulcol ax 01/22/2021 12:00:00 AM EDT active M EDENT ([facility], ) Clenpiq Clenpiq 01/22/2021 12:00:00 AM EDT active [facility] ([facility], ) POLYETHYLENE GLYCOL 3350 474959 MG / Pot assium Chloride 1480 MG / Sodium Bicarbonate 5720 MG / Sodium Chloride 01941 MG Powder for Oral Solution SODIUM CHLORIDE/NAHCO3/KCL/PEG 01/22/2021 12:00:00 AM EDT recon soln 4000 DRINK THE LIQUID PER PRE-PROCEDURE INTRUCTIONS DRINK THE LIQUID PER PRE-PROCEDURE INTRUCTIONS SOLD: 01/24/2021 [facility] 5 mg 01/22/2021 12:00:00 AM EDT tablet,delayed release (DR/EC) 4 TAKE 4 TABLETS BY MOUTH TOGETHER PER POWEL PREPARATION INSTRUCTIONS TAKE 4 TABLETS BY MOUTH TOGETHER PER POWEL PREPARATION INSTRUCTIONS SOLD: 01/24/2021 [facility] 24 mcg 06/29/2020 12:00:00 AM EST capsule 60 TAKE ONE CAPSULE BY MOUTH TWICE A DAY WITH MEALS AND WATER TAKE ONE CAPSULE BY MOUTH TWICE A DAY WI TH MEALS AND WATER SOLD: 06/29/2020 [facility] 100 mg 06/23/2020 12:00:00 AM EST capsule 90 TAKE ONE CAPSULE BY MOUTH EVERY DAY TAKE ONE CAPSULE BY MOUTH EVERY DAY SOLD: 06/23/2020 [facility] 25 mg 06/23/2020 12:00:00 AM EST suppository 12 USE ONE SUPPOSITORY ONCE DAILY NEEDED USE ONE SUPPOSITORY ONCE DAILY NEEDED SOLD: 06/23/2020 [facility] hydrocortisone acetate 25 MG Rectal Suppository [Anusol HC] Anusol-HC 06/22/2020 12:00:00 AM EST active M EDENT ([facility]) Docusate Sodium 100 MG Oral Capsule [Colace] Colace 12:00:00 AM EST ORAL active MED[facility] ( [facility]) linaclotide 0.145 MG Oral Capsule [Linzess] Linzess 05/26 12:00:00 AM EST ORAL active [facility] ( [facility]) No Active Medications 06/22/2020 12:00:00 AM EST completed [facility] ([facility]) Insurance Providers Payer name Policy type / Coverage type Policy ID Covered green party ID Covered green party's relationship to resendiz Policy Resendiz Plan Information [facility] [id number] SP [id number] [employer] [id number] Ynes Z [id number] [place] [id number] SP [id number] [place] [id number] SP [id number] [place] [id number] SP [id number] [place] [id number] SP [id number] [employer]BS PI PI [place] [id number] SP [id number] [facility] [id number] SP [id number] ANSI-Commercial [id number] ANSI-Commercial [id number] SP [id number] [facility] [id number] SP [id number] HMO BLUE [id number] SP [id number] AETNA-PHYSICIAN [id number] 01 [id number] AETNA-O/P [id number] 01 [id number] BLUE CROSS [employer] PLAN [id number] SP [id number] [employer] BCBS P [id number] S [id number] [employer] [id number] Self [id number] [facility] [employer] [id number] Self [id number] [facility] [employer] [id number] Self [id number] [employer] B [id number] S [id number] Problems, Conditions, and Diagnoses No Information Surgeries/Procedures Procedure Description Date Indications Data Source(s) OFFICE OUTPATIENT NEW 45 MINUTES 01/10/2021 12:00:00 A M EDT [facility] ([facility], ) Results ID Date Data Source [id number] 06/21/2020 01:55:00 PM EST [facility] ([facility]) Name Value Range Interpretation Code Description Data Marli rce(s) Supporting Document(s) Blood Type Laboratory test result Normal (applies to non-n umeric results) [facility] ([facility]) AB Screen (Indirect Bridget)Vis Laboratory test result Normal (applies to non- numeric results) [facility] ([facility]) ID Date Data Source [id number] 06/21/2020 01:24:00 PM EST [facility] ([facility]) Name Value Range Interpretation Code Description Data Marli rce(s) Supporting Document(s) White Blood Count 5.1 10 4.0-10.0 Normal (applies to non-numeri c results) [facility] ([facility]) Hemoglobin 13.4 g/dL 12.0-15.5 Normal (applies to non-numeric resul ts) [facility] ([facility]) Red Blood Count 4.83 10 4.00-5.40 Normal (applies to non-numeric results) [facility] ([facility]) Hematocrit 41.3 % 36.0-47.0 Normal (applies to non-numeric resul ts) [facility] ([facility]) Mean Corpuscular Hemoglobin 27.7 pg 27.0-33.0 Norm al (applies to non-numeric results) [facility] ([facility]) Mean Corpuscular Volume 85.5 fl 80.0-96.0 Normal ( applies to non-numeric results) [facility] ([facility]) Mean Corpuscular HGB Conc 32.4 g/dL 32.0-36.5 Normal (applies to non-numeric results) [facility] ([facility]) Neutrophils % 60.2 % 36.0-66.0 Normal (applies to non-numeric re sults) [facility] ([facility]) Red Cell Distribution Width 14.1 % 11.5-14.5 Norm al (applies to non-numeric results) [facility] ([facility]) Platelet Count, Automated 257 10 150-450 Normal (applies to non-numeric results) [facility] ([facility]) [place] % 10.5 % 0.0-5.0 Above high normal [facility] ([facility]) Lymph % 28.3 % 24.0-44.0 Normal (applies to non-numeric resul ts) [facility] ([facility]) Eos % 0.2 % 0.0-3.0 Normal (applies to non-numeric resul ts) [facility] ([facility]) Baso % 0.6 % 0.0-1.0 Normal (applies to non-numeric resul ts) [facility] ([facility]) Immature Granulocyte % 0.2 % 0-3.0 Normal (applies to non-n umeric results) [facility] ([facility]) Nucleated Red Blood Cell % 0.0 % 0-0 Normal (applies to n on-numeric results) [facility] ([facility]) Lymph # 1.4 10 1.5-5.0 Below low normal [facility] ( [facility]) [place] # 0.5 10 0.0-0.8 Normal (applies to non-numeric resul ts) [facility] ([facility]) Neutrophils # 3.0 10 1.5-8.5 Normal (applies to non-numeric re sults) [facility] ([facility]) Baso # 0.0 10 0.0-0.2 Normal (applies to non-numeric resul ts) [facility] ([facility]) Eos # 0.0 10 0.0-0.5 Normal (applies to non-numeric resul ts) [facility] ([facility]) ID Date Data Source [id number] 06/21/2020 01:24:00 PM EST [facility] ([facility]) Name Value Range Interpretation Code Description Data Marli rce(s) Supporting Document(s) Prothrombin Time 13.3 s 12.5-14.3 Normal (applies to non-numeric results) [facility] ([facility]) Inr 0.99 Normal (applies to non-numeric resul ts) [facility] ([facility]) THERAPUTIC HUMAN INR VALUES INDICATIONS NORMAL RANGES PROPHYLAXIS/TREATMENT OF: VENOUS THROMBOSIS 2.0-3.0 PULMONARY EMBOLISM 2.0-3.0 PREVENTION OF SYSTEMIC EMBOLISM FROM: TISSUE HEART VALVES 2.0-3.0 ACUTE MYOCARDIAL INFARCTION 2.0-3.0 VALVULAR HEART DISEASE 2.0-3.0 ATRIAL FIBRILLATION 2.0-3.0 MECHANICAL VALVES(HIGH RISK) 2.5-3.5 RECURRENT MYOCARDIAL INFARCTION 2.5-3.5 ID Date Data Source [id number] 06/21/2020 01:24:00 PM EST [facility] ([facility]) Name Value Range Interpretation Code Description Data Marli rce(s) Supporting Document(s) aPTT in Platelet poor plasma by Coagulation assay 26.4 s 24.2-38.5 Normal (applies to non-numeric results) [facility] ([facility]) ID Date Data Source [id number] 06/21/2020 01:24:00 PM EST [facility] ([facility]) Name Value Range Interpretation Code Description Data Marli rce(s) Supporting Document(s) Ast/Sgot 13 U/L 7-37 Normal (applies to non-numeric resul ts) [facility] ([facility]) Bilirubin,Total 0.4 mg/dL 0.2-1.0 Normal (applies to non-numeric results) [facility] ([facility]) Alkaline Phosphatase 88 U/L 45-117 Normal (applies to non-num hank results) [facility] ([facility]) Alt/SGPT 21 U/L 12-78 Normal (applies to non-numeric resul ts) [facility] ([facility]) Total Protein 7.7 GM/DL 6.4-8.2 Normal (applies to non-numeric re sults) [facility] ([facility]) Albumin 3.7 GM/DL 3.2-5.2 Normal (applies to non-numeric resul ts) [facility] ([facility]) Bilirubin,Direct 0.1 mg/dL 0.0-0.2 Normal (applies to non-numeric results) [facility] Albumin/Globulin Ratio 0.9 1.2-2.2 Below low normal [facility]) ID Date Data Source [id number] 06/21/2020 01:24:00 PM EST [facility] ([facility]) Name Value Range Interpretation Code Description Data Marli rce(s) Supporting Document(s) Lipase [Enzymatic activity/volume] in Serum or Plasma 130 U/L 73-393 Normal (applies to non-numeric results) [facility] ([facility]) ID Date Data Source [id number] 06/21/2020 01:19:00 PM EST [facility] ([facility]) Name Value Range Interpretation Code Description Data Marli rce(s) Supporting Document(s) Laboratory test finding (navigational concept) 44.0 % 3 8.0-51.0 Normal (applies to non-numeric results) [facility] ([facility]) Laboratory test finding (navigational concept) 96 mg/dL 7 0-105 Normal (applies to non-numeric results) [facility] ([facility]) Laboratory test finding (navigational concept) 3.6 meq/L 3 .5-5.1 Normal (applies to non-numeric results) [facility] ([facility]) Laboratory test finding (navigational concept) 142 meq/L 1 36-145 Normal (applies to non-numeric results) [facility] ([facility]) Laboratory test finding (navigational concept) 105 meq/L 9 8-109 Normal (applies to non-numeric results) [facility]) Laboratory test finding (navigational concept) 4.4 mg/dL 4 .5-5.3 Below low normal [facility] ([facility]) Laboratory test finding (navigational concept) 28.0 MM/L 2 3.0-27.0 Above high normal [facility] ([facility]) Laboratory test finding (navigational concept) 13 mg/dL 8 -26 Normal (applies to non-numeric results) [facility] ([facility]) Laboratory test finding (navigational concept) 0.5 mg/dL 0 .6-1.3 Below low normal [facility] ([facility]) Procedure Social History No Information Vital Signs ID Date Data Source UNK Name Value Range Interpretation Code Description Data Source(s) Body height 64 [in_i] 64 [in_i] [facility] ([facility], ) 5'4" Body weight 200.00 [lb_av] 200.00 [lb_av] MEDEN T ([facility]) Body mass index (BMI) [Ratio] 34.3 kg/m2 34.3 k g/m2 [facility] ([facility]) [place] body weight 120 [lb_av] 120 [lb_av] [facility] Systolic blood pressure 112 mm[Hg] 112 mm[Hg] [facility] Diastolic blood pressure 60 mm[Hg] 60 mm[Hg] [facility] ([facility]) Body weight 90.720 kg 90.720 kg [facility] Body surface area Derived from formula 1.96 m2 1.96 m2 [facility] ([facility], ) [place] body weight 115 [lb_av] 115 [lb_av] [facility] T ([facility]) Oxygen saturation in Arterial blood by Pulse oximetry 96 % 96 % [facility] ([facility]) Body temperature 98.3 [degF] 98.3 [degF] [facility] ([facility]) Respiratory rate 18 /min 18 /min [facility] ( [facility]) Heart rate 86 /min 86 /min [facility] ([facility]) Body mass index (BMI) [Ratio] 36.9 kg/m2 36.9 k g/m2 [facility] ([facility]) Body weight 209.50 [lb_av] 209.50 [lb_av] [facility] ([facility]) Body height 63.2 [in_i] 63.2 [in_i] [facility] ([facility]) 5'3.20" Diastolic blood pressure 72 mm[Hg] 72 mm[Hg] [facility] ([facility]) Systolic blood pressure 118 mm[Hg] 118 mm[Hg] [facility]
--- OUTSIDE RECORDS SUMMARY | 2021-03-07 07:27 | CCD | Continuity of Care Document ---
Author Author Steff CAMPOS M.D. 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 start day before procedure. (if not covered by insurance please fill gavilyte script). 320ml Tobias Campos M.D. 01/22/2021 Gavilyte-N With Flavor Pack 420gm Solution Rec drink the liquid as per the pre-procedur e instructions. ( fill this script only if clenpiq is not covered by insurance). 4000ml Guanaco Campos M.D. 01/22/[address] take 4 tablets together as per bowel preparation instructions. 4tabs Guanaco Campos M.D. 01/22/2021 Lubiprostone 24mcg Capsules Amitiza-1cap prn Unknown Dok 100mg Capsules 1cap prn Unknown Nature's Bounty Acidophilus Probiotic prn Unknown Excedrin Migraine [phone] Tab lets prn Unknown Immunizations Description No Information Available Vital Signs Date Vital Result Comment 01/10/2021 11:51am BP Systolic 112 mmHg BP Diastolic 60 mmHg Height 64 inches 5'4" Weight 200.00 lb BMI (Body Mass Index) 34.3 kg/m2 [place] Body Weight 120 lb Weight 90.720 kg BSA (Body Surface Area) 1.96 m2 Results Description No Information Available Procedures Date Code Description Status 01/10/2021 05097 Office/Outpatient New Moderate M DM 45-59 Minutes Completed Medical Devices Description No Information Available Encounters Type Date Location Provider Dx Diagnosis Office Visit 01/10/2021 10:50a [facility] ctice Guanaco Campos M.D. K62.5 Hemorrhage of anus and rectu m R19.4 Change in bowel habit Assessments Date Code Description Provider 01/10/2021 K62.5 Hemorrhage of anus and rectum Carmen Campos M.D. 01/10/2021 R19.4 Change in bowel habit Guanaco Campos M.D. Plan of Treatment Future Appointment(s):* 03/07/2021 2:00 am - Gu[facility] Functional Status Description No Information Available Mental Status Description No Information Available Referrals Refer to Dr Reason for Referral Status Appt Date Guanaco Campos M.D. DIVERTICULITIS / LIVER LESION Sched uled 01/10/2021 [facility] [address], [address] [place] [address] [phone]
[2021-03-07 09:15] VITALS: BP 114/82
--- NOTE | 2021-03-07 09:28 | ROOR ---
Patient Name: Steff Shields Procedure Date: 03/07/2021 8:13 AM Date of : 1975 Age: 45 Room: [facility] [place] Gender: Female Note Status: Finalized Procedure: Colonoscopy Indications: Screening for colorectal malignant neoplasm, Incidental - Follow-up of diverticulosis of the colon Providers: Guanaco Campos MD Referring MD: Annia PATRICIO DO Requesting Provider: Medicines: Monitored Anesthesia Care Complications: No immediate complications. Procedure: Pre-Anesthesia Assessment: - Prior to the procedure, a History and Physical was performed, and patient medications and allergies were reviewed. The patient is competent. The risks and benefits of the procedure and the sedation options and risks were discussed with the patient. All questions were answered and informed consent was obtained. Patient identification and proposed procedure were verified by the physician, the nurse and the anesthesiologist in the procedure room. Mental Status Examination: alert and oriented. Airway Examination: normal oropharyngeal airway and neck mobility. Respiratory Examination: clear to auscultation. CV Examination: normal. Prophylactic Antibiotics: The patient does not require prophylactic antibiotics. Prior Anticoagulants: The patient has taken no previous anticoagulant or antiplatelet agents. ASA Grade Assessment: II - A patient with mild systemic disease. After reviewing the risks and benefits, the patient was deemed in satisfactory condition to undergo the procedure. The anesthesia plan was to use monitored anesthesia care (MAC). Immediately prior to administration of medications, the patient was re-assessed for adequacy to receive sedatives. The heart rate, respiratory rate, oxygen saturations, blood pressure, adequacy of pulmonary ventilation, and response to care were monitored throughout the procedure. The physical status of the patient was re-assessed after the procedure. The Colonoscope was introduced through the anus and advanced to the terminal ileum, with identification of the appendiceal orifice and IC valve. The colonoscopy was performed without difficulty. The patient tolerated the procedure well. The quality of the bowel preparation was good. The terminal ileum, ileocecal valve, appendiceal orifice, and rectum were photographed. Scope insertion time was 2 minutes. Scope withdrawal time was 9 minutes. The total duration of the procedure was 12 minutes. Findings: The perianal and digital rectal examinations were normal. The terminal ileum appeared normal. A 8 mm polyp was found in the transverse colon. The polyp was sessile. The polyp was removed with a cold snare. Resection and retrieval were complete. Verification of patient identification for the specimen was done by the physician and nurse using the patient's name, date and medical record number. Estimated blood loss was minimal. Multiple small and large-mouthed diverticula were found from sigmoid to ascending colon. There was no evidence of diverticular bleeding. Non-bleeding external and internal hemorrhoids were found during retroflexion. The hemorrhoids were medium-sized. Impression: - The examined portion of the ileum was normal. - One 8 mm polyp in the transverse colon, removed with a cold snare. Resected and retrieved. - Severe diverticulosis from sigmoid to ascending colon. There was no evidence of diverticular bleeding. - Non-bleeding external and internal hemorrhoids. Recommendation: - Patient has a contact number available for emergencies. The signs and symptoms of potential delayed complications were discussed with the patient. Return to normal activities tomorrow. Written discharge instructions were provided to the patient. - High fiber diet. - Continue present medications. - Use original regular Metamucil one tablespoon PO daily. - Miralax 1 capful (17 grams) in 8 ounces of water PO daily for atleast 7 days and then adjust dose to have one to two soft bowel movements daily. - Await pathology results. - Repeat colonoscopy in 5-10 years for surveillance based on pathology results. - Telephone GI clinic for pathology results in 2 weeks. - Return to GI clinic if persistent symptoms or new symptoms. - Return to primary care physician. Procedure Code(s): --- Professional --- 21245, Colonoscopy, flexible; with removal of tumor(s), polyp(s), or other lesion(s) by snare technique Diagnosis Code(s): --- Professional --- Z12.11, Encounter for screening for malignant neoplasm of colon K64.8, Other hemorrhoids K63.5, Polyp of colon K57.30, Diverticulosis of large intestine without perforation or abscess without bleeding CPT copyright 2019 [employer]. All rights reserved. The codes documented in this report are preliminary and upon boilermaking supervisor review may be revised to meet current compliance requirements. Guanaco Campos MD Guanaco Campos MD 03/07/2021 9:27:43 AM Electronically signed by Guanaco Campos MD Number of Addenda: 0 Note Initiated On: 03/07/2021 8:13 AM Estimated Blood Loss: Estimated blood loss was minimal.
== END 2021-03-07 09:21 | disposition home or self-care (01) ==
LOC: M OPP 07:24
PROVIDERS: ATTEND Internal Medicine Gastroenterology
DX: K63.5 Polyp of colon (principal); K57.30 Diverticulosis of large intestine without perforation or abscess without bleeding; K64.8 Other hemorrhoids; R19.4 Change in bowel habit; K62.9 Disease of anus and rectum, unspecified; Z80.0 Family history of malignant neoplasm of digestive organs; Z80.7 Family history of other malignant neoplasms of lymphoid, hematopoietic and related tissues

== ENCOUNTER → 2022-02-28 | Outpatient (CLI) | payer BC ==
[~2022-02-28] MED LIST changes: -LIDOCAINE 2% 100MG/5ML SDV (FOR ANES.) As Ordered ONE; -NS 1,000 ML IV ONE; -propofoL 200 MG/20 ML VIAL As Ordered ONE
[2022-02-28 12:08] LABS: BASO % 0.6 % (0.0-1.0); EOS % 0.2 % (0.0-3.0); HEMATOCRIT 39.3 % (36.0-47.0); HEMOGLOBIN 12.4 g/dl (12.0-15.5); LYMPH # 1.5 10^3/uL (1.5-5.0); LYMPH % 28.9 % (24.0-44.0); MEAN CORPUSCULAR HEMOGLOBIN 26.3 pg (27.0-33.0); MEAN CORPUSCULAR HGB CONC 31.6 g/dl (32.0-36.5); MEAN CORPUSCULAR VOLUME 83.3 fl (80.0-96.0); MONO # 0.5 10^3/uL (0.0-0.8); MONO % 9.6 % (2.0-8.0); NEUTROPHILS # 3.2 10^3/uL (1.5-8.5); NEUTROPHILS % 60.5 % (36.0-66.0); PLATELET COUNT, AUTOMATED 261 10^3/uL (150-450); RED BLOOD COUNT 4.72 10^6/uL (4.00-5.40); WHITE BLOOD COUNT 5.2 10^3/uL (4.0-10.0)
[2022-02-28 12:46] LABS: HEMOGLOBIN A1c 6.2 %
[2022-02-28 13:00] LABS: ALBUMIN 3.3 GM/DL (3.2-5.2); ALT/SGPT 21 U/L (12-78); BILIRUBIN,DIRECT 0.1 MG/DL (0.0-0.2); BILIRUBIN,TOTAL 0.3 MG/DL (0.2-1.0); BLOOD UREA NITROGEN 13 MG/DL (7-18); CALCIUM LEVEL 8.7 MG/DL (8.5-10.1); CARBON DIOXIDE LEVEL 24 MEQ/L (21-32); CHLORIDE LEVEL 107 MEQ/L (98-107); CHOLESTEROL LEVEL 213 MG/DL (<200); CHOLESTEROL RISK RATIO 3.491 (<5); CREATININE FOR GFR 0.57 MG/DL (0.55-1.30); FREE T4 1.13 NG/DL (0.76-1.46); GLOMERULAR FILTRATION RATE > 60.0 (>58); GLUCOSE, FASTING 105 MG/DL (70-100); HDL CHOLESTEROL 61 MG/DL (>40); LDL CHOLESTEROL 138 MG/DL (<100); LIPASE 129 U/L (73-393); NON-HDL-C 152 MG/DL; SODIUM LEVEL 138 MEQ/L (136-145); TOTAL PROTEIN 7.4 GM/DL (6.4-8.2); TRIGLYCERIDES LEVEL 72 MG/DL (<150)
== END ==
LOC: M LAB 11:00
PROVIDERS: ATTEND Physician Assistant
DX: R10.84 Generalized abdominal pain (principal)

== ENCOUNTER → 2022-04-01 | Outpatient (CLI) | payer BC ==
[2022-04-01 14:26] LABS: ALBUMIN 3.6 GM/DL (3.2-5.2); ALT/SGPT 21 U/L (12-78); BILIRUBIN,TOTAL 0.4 MG/DL (0.2-1.0); BLOOD UREA NITROGEN 12 MG/DL (7-18); CALCIUM LEVEL 8.9 MG/DL (8.5-10.1); CARBON DIOXIDE LEVEL 25 MEQ/L (21-32); CHLORIDE LEVEL 106 MEQ/L (98-107); CHOLESTEROL LEVEL 209 MG/DL (<200); CREATININE FOR GFR 0.66 MG/DL (0.55-1.30); GLOMERULAR FILTRATION RATE > 60.0 (>58); GLUCOSE, FASTING 112 MG/DL (70-100); HDL CHOLESTEROL 62 MG/DL (>40); LDL CHOLESTEROL 134 MG/DL (<100); NON-HDL-C 147 MG/DL; SODIUM LEVEL 135 MEQ/L (136-145); TOTAL PROTEIN 7.6 GM/DL (6.4-8.2); TRIGLYCERIDES LEVEL 64 MG/DL (<150)
[2022-04-01 20:05] LABS: HEMOGLOBIN A1c 6.2 %
== END ==
LOC: M LAB 10:17
PROVIDERS: ATTEND Physician Assistant
DX: R73.01 Impaired fasting glucose (principal); E78.5 Hyperlipidemia, unspecified

== ENCOUNTER → 2022-04-09 | Outpatient (CLI) | payer BC | LOC: M WHC 08:29 | PROVIDERS: ATTEND Physician Assistant | DX: Z12.31 Encounter for screening mammogram for malignant neoplasm of breast (principal); R92.8 Other abnormal and inconclusive findings on diagnostic imaging of breast ==

== ENCOUNTER → 2022-04-23 | Outpatient (CLI) | payer BC | LOC: M WHC 09:27 | PROVIDERS: ATTEND Physician Assistant | DX: R92.2 Inconclusive mammogram (principal) ==

== ENCOUNTER → 2023-07-07 | Outpatient (CLI) | payer BC ==
[2023-07-07 12:20] LABS: BASO % 0.6 % (0.0-1.0); EOS % 0.2 % (0.0-3.0); HEMATOCRIT 42.3 % (36.0-47.0); HEMOGLOBIN 13.9 g/dl (12.0-15.5); LYMPH # 1.3 10^3/uL (1.5-5.0); LYMPH % 27.1 % (24.0-44.0); MEAN CORPUSCULAR HEMOGLOBIN 28.4 pg (27.0-33.0); MEAN CORPUSCULAR HGB CONC 32.9 g/dl (32.0-36.5); MEAN CORPUSCULAR VOLUME 86.3 fl (80.0-96.0); MONO # 0.5 10^3/uL (0.0-0.8); MONO % 10.1 % (2.0-8.0); NEUTROPHILS # 2.9 10^3/uL (1.5-8.5); NEUTROPHILS % 61.8 % (36.0-66.0); PLATELET COUNT, AUTOMATED 196 10^3/uL (150-450); WHITE BLOOD COUNT 4.7 10^3/uL (4.0-10.0)
[2023-07-07 12:39] LABS: HEMOGLOBIN A1c 6.1 % (4.0-6.0)
[2023-07-07 12:49] LABS: IRON (FE) 54 UG/DL (50-170)
[2023-07-07 12:50] LABS: ALBUMIN 3.5 G/DL (3.2-5.2); ALKALINE PHOSPHATASE 91 U/L (46-116); ALT/SGPT 15 U/L (7.0-40); AST/SGOT 12 U/L (<34); BILIRUBIN,TOTAL 0.4 MG/DL (0.3-1.2); BLOOD UREA NITROGEN 9 MG/DL (9-23); CALCIUM LEVEL 8.5 MG/DL (8.5-10.1); CARBON DIOXIDE LEVEL 25 MMOL/L (20-31); CHLORIDE LEVEL 104 MMOL/L (98-107); CHOLESTEROL LEVEL 201 MG/DL (<200); CHOLESTEROL RISK RATIO 3.46 (<5); CREATININE FOR GFR 0.49 MG/DL (0.55-1.30); GLOMERULAR FILTRATION RATE > 60.0 (>58); GLUCOSE, FASTING 101 MG/DL (60-100); LDL CHOLESTEROL 129.8 MG/DL (<100); PERCENT SATURATION 17.1 % (13.2-45.0); POTASSIUM SERUM 4.2 MMOL/L (3.5-5.1); SODIUM LEVEL 136 MMOL/L (136-145); TOTAL IRON BINDING CAPACITY 316 UG/DL (250-425); TRIGLYCERIDES LEVEL 66 MG/DL (<150)
[2023-07-07 12:53] LABS: THYROID STIMULATING HORMONE 1.114 uIU/ML (0.55-4.78)
[2023-07-07 12:54] LABS: FERRITIN 16.4 NG/ML (7.3-270.7); FREE T4 1.15 NG/DL (0.89-1.76); VITAMIN B12 LEVEL 679 PG/ML (211-911)
[2023-07-07 12:59] LABS: TOTAL 25(OH) VITAMIN D 5.5 NG/ML (20.0-100.0)
== END ==
LOC: M LAB 09:42
PROVIDERS: ATTEND Physician Assistant
DX: R73.01 Impaired fasting glucose (principal); E78.5 Hyperlipidemia, unspecified; Z13.29 Encounter for screening for other suspected endocrine disorder

== ENCOUNTER → 2023-12-10 | Outpatient (REF) | payer BC | LOC: M LAB REF 17:01 | PROVIDERS: ATTEND Physician Assistant | DX: N39.0 Urinary tract infection, site not specified (principal) ==

== ENCOUNTER 2023-12-18 05:46 | Emergency (ER) | payer BC ==
[~2023-12-18] VITALS: Ht 162.6 cm; Wt 98.3 kg
[2023-12-18 06:37] LABS: BASO % 0.4 % (0.0-1.0); HEMATOCRIT 40.3 % (36.0-47.0); HEMOGLOBIN 13.6 g/dl (12.0-15.5); LYMPH # 0.9 10^3/uL (1.5-5.0); LYMPH % 12.1 % (24.0-44.0); MEAN CORPUSCULAR HEMOGLOBIN 28.5 pg (27.0-33.0); MEAN CORPUSCULAR HGB CONC 33.7 g/dl (32.0-36.5); MEAN CORPUSCULAR VOLUME 84.3 fl (80.0-96.0); MONO # 0.5 10^3/uL (0.0-0.8); MONO % 6.2 % (2.0-8.0); PLATELET COUNT, AUTOMATED 249 10^3/uL (150-450); RED BLOOD COUNT 4.78 10^6/uL (4.00-5.40); WHITE BLOOD COUNT 7.4 10^3/uL (4.0-10.0)
[2023-12-18 07:05] LABS: LIPASE 59 U/L (12-53)
[2023-12-18 07:08] LABS: ALBUMIN 3.7 G/DL (3.2-5.2); ALKALINE PHOSPHATASE 106 U/L (46-116); ALT/SGPT 19 U/L (7.0-40); AST/SGOT 11 U/L (<34); BILIRUBIN,DIRECT 0.1 MG/DL (<0.4); BILIRUBIN,TOTAL 0.4 MG/DL (0.3-1.2); BLOOD UREA NITROGEN 12 MG/DL (9-23); CALCIUM LEVEL 8.8 MG/DL (8.5-10.1); CARBON DIOXIDE LEVEL 23 MMOL/L (20-31); CHLORIDE LEVEL 103 MMOL/L (98-107); CREATININE FOR GFR 0.63 MG/DL (0.55-1.30); GLOMERULAR FILTRATION RATE > 60.0 (>58); GLUCOSE, FASTING 161 MG/DL (60-100); POTASSIUM SERUM 4.1 MMOL/L (3.5-5.1); SODIUM LEVEL 134 MMOL/L (136-145); TOTAL PROTEIN 7.6 G/DL (5.7-8.2)
[2023-12-18] MEDS ORDERED: ISOVUE-370 76% 100ML VIAL As Ordered ONE (09:11)
[2023-12-18 09:29] LABS: HCG, SERUM QUALITATIVE NEGATIVE (NEGATIVE)
[2023-12-18] MEDS: NS 1,000 ML IV ONE (09:31)
[2023-12-18] MEDS: ONDANSETRON 4MG 2ML VIAL IV ONE (09:31)
[2023-12-18] MEDS: KETOROLAC 30 MG/ML 1ML VIAL IV ONE (09:34)
[2023-12-18 10:57] LABS: APPEARANCE, URINE CLEAR (CLEAR); BACTERIA, URINE AUTO NEGATIVE (NEGATIVE); BILIRUBIN, URINE AUTO NEGATIVE (NEGATIVE); BLOOD, URINE BLOOD 1+ (NEGATIVE); COLOR, URINE YELLOW (YELLOW); GLUCOSE, URINE (UA) AUTO NEGATIVE (NEGATIVE); KETONE, URINE AUTO NEGATIVE (NEGATIVE); LEUKOCYTE ESTERASE, URINE AUTO NEGATIVE (NEGATIVE); NITRITE, URINE AUTO NEGATIVE (NEGATIVE); PROTEIN, URINE AUTO NEGATIVE (NEGATIVE); RBC, URINE AUTO 1 /HPF (0-3); SQUAMOUS EPITHELIAL CELL UR AU 0 /HPF (0-6); UROBILINOGEN, URINE AUTO 0.2 mg/dL (0.0-2.0); WBC, URINE AUTO 0 /HPF (0-3)
[2023-12-18 10:58] LABS: SPECIFIC GRAVITY URINE AUTO >1.060 (1.002-1.035)
[2023-12-18] MEDS ORDERED: ONDA-282 PO (11:23)
[2023-12-18] MEDS ORDERED: DICY20TA3 PO (11:23)
[2023-12-18 11:29] VITALS: BP 109/70; TEMP 97; O2SAT 99
== END 2023-12-18 11:37 | disposition home or self-care (01) ==
LOC: M ED 05:46
DX: R10.84 Generalized abdominal pain (principal); R11.2 Nausea with vomiting, unspecified; F41.9 Anxiety disorder, unspecified; D18.03 Hemangioma of intra-abdominal structures
CPT/HCPCS: 74177; 80048; 80076; 81001; 83690; 84703; 85025; 96361; 96374; 96375; 99284; J1885; J2405; Q9967